=== PATIENT | female | born 1995 | race American Indian/Alaskan Native ===

== ENCOUNTER 2017-03-21 17:35 | Emergency (ER) | payer SELFPAY ==
[2017-03-21 17:53] VITALS: BP 125/80
[2017-03-21] MEDS ORDERED: Cephalexin 500 MG Cap PO ONE (18:06)
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
== END 2017-03-21 18:30 | disposition home or self-care (01) ==
LOC: FB.ED 17:35
DX: L03.116 Cellulitis of left lower limb (principal); F17.210 Nicotine dependence, cigarettes, uncomplicated
CPT/HCPCS: 99283; A9270

== ENCOUNTER 2017-10-26 18:37 | Emergency (ER) | payer OTHER ==
[2017-10-26] MEDS ORDERED: Ibuprofen 600 MG Tab PO ONE (18:49)
[2017-10-26 19:51] VITALS: BP 127/71
[2017-10-26] MEDS ORDERED: Ibuprofen 600 MG Tab ONE (21:04)
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
[2017-10-26] MEDS ORDERED: Acetaminophen/HYDROcodone 325-5 MG Tab PO ONE (21:24)
--- NOTE | 2017-10-27 10:33 | CR ---
INDICATION: Trauma. RIGHT ANKLE: Three views of the right ankle revealed soft tissue swelling, especially overlying the lateral malleolus. The swelling is bilateral, however. There may be some very minimal asymmetry in the ankle mortise joint space, slightly widened laterally. This could represent a lateral ligamental strain. No definite fracture or dislocation was identified, however - no other bone or joint abnormality was suggested. IMPRESSION: Subtle widening of the lateral ankle mortise joint space, raising question of lateral ligamental strain when coupled with relatively prominent lateral soft tissue swelling especially. Stress views of the ankle or MRI may be helpful for further evaluation. No fracture sites identified. [facility]
== END 2017-10-26 21:35 | disposition home or self-care (01) ==
LOC: FB.ED 18:37
DX: S93.401A Sprain of unspecified ligament of right ankle, initial encounter (principal); F17.210 Nicotine dependence, cigarettes, uncomplicated; X50.9XXA Other and unspecified overexertion or strenuous movements or postures, initial encounter; Y99.0 Civilian activity done for income or pay
CPT/HCPCS: 73610; 99283; A9270

== ENCOUNTER 2017-10-29 16:36 | Emergency (ER) | payer SELFPAY ==
[2017-10-29 17:07] VITALS: BP 134/75
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
--- NOTE | 2017-10-31 12:01 | CR ---
INDICATION: Right foot caught in door today - pain top of foot, bruising in toe area, scraped great toe. RIGHT FOOT: Three views of the right foot revealed minimal soft tissue swelling along the distal aspect of the metatarsals dorsally. No underlying bone or joint abnormality was identified - no fracture or dislocation was seen. MTDD
== END 2017-10-29 17:25 | disposition home or self-care (01) ==
LOC: FB.ED 16:36
DX: S93.401A Sprain of unspecified ligament of right ankle, initial encounter (principal); W22.8XXA Striking against or struck by other objects, initial encounter; Y92.009 Unspecified place in unspecified non-institutional (private) residence as the place of occurrence of the external cause
CPT/HCPCS: 29515; 73630-RT; 99283

== ENCOUNTER 2017-12-15 01:49 | Emergency (ER) | payer BC, MEDICAID, OTHER ==
[2017-12-15] MEDS: Ketorolac 30 MG/ML SDV IVPUSH ONE (03:29)
[2017-12-15 08:46] VITALS: BP 132/78
--- NOTE | 2017-12-15 12:26 | CR ---
INDICATION: Fall, foot injury. RIGHT ANKLE: Three views of the right ankle revealed soft tissue swelling, especially laterally. However, the ankle mortise appears to be intact without a fracture, dislocation , or other significant bone or joint abnormality. DELFINOD
--- NOTE | 2017-12-15 12:31 | CR ---
INDICATION: Fall. COCCYX: Frontal and lateral views of the coccyx were obtained. The possibility of a fracture at the proximal coccygeal segment is difficult to exclude. This could be confirmed by CT, if felt to be clinically necessary. Minimal separation of fracture fragments may be present. This is suggested on the lateral view initially. Additional lateral views coned down to that area may be helpful also. The AP view does not definitely demonstrate any abnormality. There is noted an IUD in place to the left of midline in the pelvis. IMPRESSION: Difficult to exclude a fracture of what appears to be the proximal coccygeal segment. Additional lateral views are recommended for confirmation. CT may also be confirmatory as necessary. Position and alignment of apparent fracture fragments would likely be adequate. MTDD
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
== END 2017-12-15 08:35 | disposition home or self-care (01) ==
LOC: FB.ED 01:49
DX: S06.0X9A Concussion with loss of consciousness of unspecified duration, initial encounter (principal); F10.129 Alcohol abuse with intoxication, unspecified; S93.401A Sprain of unspecified ligament of right ankle, initial encounter; W10.9XXA Fall (on) (from) unspecified stairs and steps, initial encounter; Y90.0 Blood alcohol level of less than 20 mg/100 ml
CPT/HCPCS: 36415; 70450; 72125; 72220; 73610-RT; 80053; 80305; 81025; 85025; 96372; 99285; G0480; J1885

== ENCOUNTER 2018-11-29 03:39 | Emergency (ER) | payer MEDICAID ==
[2018-11-29] MEDS ORDERED: Acetaminophen/HYDROcodone 325-5 MG Tab PO ONE (03:40)
[2018-11-29] MEDS ORDERED: Bupivacaine 0.5% 10 ML SDV INFILT ONE (03:40)
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
[2018-11-29] MEDS ORDERED: Morphine 2 MG/ML Syringe IM ONE (04:04)
[2018-11-29] MEDS ORDERED: Lidocaine/EPINEPHrine/Tetracaine Soln 5 ML Each TOP ONE (05:53)
[2018-11-29] MEDS ORDERED: cefTRIAXone 1 GM Vial IM ONE (06:47)
[2018-11-29 07:32] VITALS: BP 118/75
== END 2018-11-29 07:25 | disposition home or self-care (01) ==
LOC: FB.ED 03:39
DX: S91.312A Laceration without foreign body, left foot, initial encounter (principal); W25.XXXA Contact with sharp glass, initial encounter
CPT/HCPCS: 12002; 73630; 96372; 99283; A9270; J0696; J2270; J3490